=== PATIENT | male | born 1950 | race Caucasian/White ===

== ENCOUNTER 2018-06-30 15:53 | Emergency (ER) | payer MEDICARE ==
[~2018-06-30] VITALS: Ht 180.3 cm; Wt 130.0 kg
[2018-06-30] MEDS ORDERED: EC-NAPROSYN500 MG PO (16:52)
[2018-06-30] MEDS ORDERED: PREDNISONE10 MG PO (16:52)
[2018-06-30 17:00] VITALS: BP 152/85
== END 2018-06-30 17:00 | disposition home or self-care (01) ==
LOC: ED 15:53
DX: M76.9 Unspecified enthesopathy, lower limb, excluding foot (principal); M25.561 Pain in right knee; X50.3XXA Overexertion from repetitive movements, initial encounter; Y93.53 Activity, golf; Y92.39 Other specified sports and athletic area as the place of occurrence of the external cause

== ENCOUNTER → 2018-07-02 | Outpatient (REF) | payer MEDICARE ==
[~2018-07-02] MED LIST: EC-NAPROSYN500 MG PO; PREDNISONE10 MG PO
== END | disposition home or self-care (01) ==
LOC: ULTRASND 14:00
PROVIDERS: ATTEND Orthopaedic Surgery
DX: M79.661 Pain in right lower leg (principal); M25.561 Pain in right knee; M25.511 Pain in right shoulder

== ENCOUNTER 2022-10-03 09:08 | Day surgery (SDC) | payer MEDICARE ==
[~2022-10-03] VITALS: Ht 182.9 cm; Wt 124.3 kg
[~2022-10-03 09:08] MED LIST changes: +ASPIRIN 81 LOW81 MG PO; +ATORVASTATIN CA10 MG PO; +B121000 MC1 PO; +CARAFATE1 GM/10 M1 PO; +DOXYCYCLINE100 MG PO; +HYZAAR1 TAB PO; +LEVOCETIRIZINE D5 MG PO; +MONTELUKAST SOD10 MG PO; +OMEPRAZOLE DR40 MG PO
[2022-10-03 11:08] VITALS: BP 110/92
== END 2022-10-03 10:55 | disposition home or self-care (01) ==
LOC: ENDO 09:08
PROVIDERS: ATTEND Surgery
PROC: 0D758ZZ Dilation of Esophagus, Via Natural or Artificial Opening Endoscopic (ICD-10-PCS; principal; 2022-10-03)
PROC: 0DB78ZX Excision of Stomach, Pylorus, Via Natural or Artificial Opening Endoscopic, Diagnostic (ICD-10-PCS; 2022-10-03)
DX: K22.2 Esophageal obstruction (principal); K29.70 Gastritis, unspecified, without bleeding; K44.9 Diaphragmatic hernia without obstruction or gangrene; K21.9 Gastro-esophageal reflux disease without esophagitis; I10 Essential (primary) hypertension; Z79.899 Other long term (current) drug therapy

== ENCOUNTER 2022-12-03 09:22 | Observation (INO) | payer MEDICARE ==
[2022-12-03] VITALS (9 sets, daily range): BP systolic 111–136; BP diastolic 64–88
[~2022-12-03] VITALS: Ht 182.9 cm; Wt 126.0 kg
[2022-12-04 05:40] LABS: BASO% 0.2 % (0-3); HEMATOCRIT 37.2 % (39.0-50.0); IMMATURE GRANULOCYTES 0.2 % (0.0-5.0); LYMPH% 12.3 % (15-41); MEAN CELL VOLUME 103.9 fL CALC (80.0-100.0); MEAN CORPUSCULAR HGB 33.5 pG CALC (26.0-32.0); MEAN CORPUSCULAR HGB CONC 32.3 g/dL CAL (32.0-36.0); MONO% 6.1 % (2-13); NEUT# 9.72 thou/uL (1.82-7.42); NEUT% 81.2 % (42-76); RED BLOOD COUNT 3.58 mill/uL (4.70-6.10); RED CELL DISTRI WIDTH 13.8 % (11.5-15.5)
[2022-12-04 06:08] LABS: ALBUMIN 3.6 g/dL (3.2-5.0); ALKALINE PHOSPHATASE 49 u/l (38-126); ANION GAP 13 (6-22 (CALC)); BILIRUBIN, TOTAL 0.9 mg/dL (0.2-1.3); BUN 19 mg/dL (8-23); BUN/CREATININE RATIO 16 (12-20 (CALC)); CARBON DIOXIDE 23 mmol/l (22-30); CHLORIDE 108 mmol/l (95-108); CREATININE 1.2 mg/dL (0.7-1.3); GFR FOR AFR.AMER. > 60 ML/MIN (>=60 (CALC)); GFR OTHER RACES 60 ML/MIN (>=60 (CALC)); POTASSIUM 4.5 mmol/l (3.5-5.1); SGOT/AST 80 u/l (19-48); SODIUM 140 mmol/l (137-146); TOTAL PROTEIN 6.7 g/dL (6.3-8.2)
[2022-12-04 06:28] VITALS: BP 99/57
[2022-12-04] MEDS ORDERED: PERCOCET 5/321 COMBO PO (09:31)
== END 2022-12-04 12:06 | disposition home or self-care (01) ==
LOC: ORM 09:22 → MS2 15:15
PROVIDERS: ADMIT Surgery; ATTEND Surgery
PROC: 0DV44ZZ Restriction of Esophagogastric Junction, Percutaneous Endoscopic Approach (ICD-10-PCS; principal; 2022-12-03)
DX: K21.9 Gastro-esophageal reflux disease without esophagitis (principal); I10 Essential (primary) hypertension; E78.00 Pure hypercholesterolemia, unspecified; I25.2 Old myocardial infarction
CPT/HCPCS: J0131; J0690; J1100

== ENCOUNTER 2023-05-19 07:29 | Day surgery (SDC) | payer MEDICARE ==
[~2023-05-19] VITALS: Ht 182.9 cm; Wt 118.4 kg
[~2023-05-19 07:29] MED LIST changes: +FLOVENT HFA44 MC1 NAB; +PERCOCET 5/321 COMBO PO
[2023-05-19 10:36] VITALS: BP 125/87
== END 2023-05-19 10:43 | disposition home or self-care (01) ==
LOC: ENDO 07:29 → ORM 12:10
PROVIDERS: ATTEND Internal Medicine Gastroenterology
PROC: 0DBK8ZZ Excision of Ascending Colon, Via Natural or Artificial Opening Endoscopic (ICD-10-PCS; principal; 2023-05-19)
DX: Z12.11 Encounter for screening for malignant neoplasm of colon (principal); D12.2 Benign neoplasm of ascending colon; K57.30 Diverticulosis of large intestine without perforation or abscess without bleeding; K64.8 Other hemorrhoids; I10 Essential (primary) hypertension; E78.5 Hyperlipidemia, unspecified; I25.10 Atherosclerotic heart disease of native coronary artery without angina pectoris